=== PATIENT | female | born 1990 | race Caucasian/White ===

== ENCOUNTER 2017-04-23 18:11 | Emergency (ER) | payer MEDICAID ==
--- NOTE | 2017-04-23 19:03 | EDM.PDOC ---
ED HPI GENERAL MEDICAL PROBLEM - General Chief Complaint: General Stated Complaint: COLD Time Seen by Provider: 04/23/17 18:45 Source of Information: Reports: Patient History Limitations: Reports: No Limitations - History of Present Illness INITIAL COMMENTS - FREE TEXT/NARRATIVE: History of present illness: [26-year-old female comes in complaining of cough, congestion, and general signs and symptoms of a head cold. Patient states she is concerned because she utilizes an inhaler that she no longer has refills for and the one that she has available to her is empty. She also indicates that when she gets congested like this that the mucus is gets very thick and tachycardia.] Review of systems: As per history of present illness and below otherwise all systems reviewed and negative. Past medical history: As per history of present illness and as reviewed below otherwise noncontributory. Surgical history: As per history of present illness and as reviewed below otherwise noncontributory. Social history: No reported history of drug or alcohol abuse. Family history: As per history of present illness and as reviewed below otherwise noncontributory. Physical exam: HEENT: Atraumatic, normocephalic, pupils reactive, negative for conjunctival pallor or scleral icterus, mucous membranes moist, throat clear, neck supple, nontender, trachea midline. Lungs: Clear to auscultation, breath sounds equal bilaterally, chest nontender. Heart: S1S2, regular, negative for clicks, rubs, or JVD. Abdomen: Soft, nondistended, nontender. Negative for masses or hepatosplenomegaly. Negative for costovertebral tenderness. Pelvis: Stable nontender. Genitourinary: Deferred. Rectal: Deferred. Extremities: Atraumatic, negative for cords or calf pain. Neurovascular unremarkable. Neuro: Awake, alert, oriented. Cranial nerves II through XII unremarkable. Cerebellum unremarkable. Motor and sensory unremarkable throughout. Exam nonfocal. Global assessment is benign save the subjective complaint as noted in history of present illness patient does have a little bit of a loose cough but no sputum visualized at this time Diagnostics: [] Therapeutics: [] Impression: [#1 viral syndrome #2 history of asthma] Plan: [Provide a new inhaler with a spacer and since patient is a smoker will give antibiotics.] Definitive disposition and diagnosis as appropriate pending reevaluation and review of above. throat Pain Score (Numeric/FACES): 4 - Related Data Allergies Allergy/AdvReac Type Severity Reaction Status Date / Time No Known Allergies Allergy Verified 04/23/17 18:30 Home Meds: Home Meds Albuterol Sulfate [Proair Hfa] 2 puff IH Q6HR #1 hfa.aer.ad 04/23/17 [Rx] Amoxicillin/Potassium Clav [Augmentin 875-125 Tablet] 1 each PO BID #20 tablet 04/23/17 [Rx] Inhaler, Assist Devices [Space Chamber Plus] 1 each MC ASDIRECTED #1 spacer 04/01 [Rx] methylPREDNISolone [Medrol] 4 mg PO DAILY #21 tab.ds.pk 04/23/17 [Rx] Past Medical History - Past Health History Medical/Surgical History: Denies Medical/Surgical History Respiratory History: Reports: Asthma DATA MANAGEMENT History: Reports: Social & Family History - Family History Family Medical History: Noncontributory - Tobacco Use Smoking Status *Q: Current Every Day Smoker Years of Tobacco use: 9 Packs/Tins Daily: 1 - Recreational Drug Use Recreational Drug Use: No ED ROS GENERAL - Review of Systems Review Of Systems: See Below (See history of present illness) ED EXAM, GENERAL - Physical Exam Exam: See Below (History of present illness) Course - Vital Signs Last Recorded V/S: Last Vital Signs Temp 36.1 C 04/23/17 18:15 Pulse 117 H 04/23/17 18:15 Resp 18 04/23/17 18:15 BP 137/87 04/23/17 18:15 Pulse Ox 95 04/23/17 18:15 Departure - Departure Time of Disposition: 19:02 Disposition: Home, Self-Care 01 Condition: Good Clinical Impression: Viral syndrome, Asthma - Discharge Information Referrals: PCP,None [Primary Care Provider] - Additional Instructions: The following information is given to patients seen in the emergency department who are being discharged to home. This information is to outline your options for follow-up care. We provide all patients seen in our emergency department with a follow-up referral. The need for follow-up, as well as the timing and circumstances, are variable depending upon the specifics of your emergency department visit. If you don't have a primary care physician on staff, we will provide you with a referral. We always advise you to contact your personal physician following an emergency department visit to inform them of the circumstance of the visit and for follow-up with them and/or the need for any referrals to a consulting specialist. The emergency department will also refer you to a specialist when appropriate. This referral assures that you have the opportunity for follow-up care with a specialist. All of these measure are taken in an effort to provide you with optimal care, which includes your follow-up. Under all circumstances we always encourage you to contact your private physician who remains a resource for coordinating your care. When calling for follow-up care, please make the office aware that this follow-up is from your recent emergency room visit. If for any reason you are refused follow-up, please contact the [facility] Emergency Department at and asked to speak to the emergency department charge nurse. Take medication as directed Follow-up with PCP 1-2 days Return to ED as needed as discussed [facility] [address] [place] [id number]
[2017-04-23 20:39] VITALS: BP 109/75
== END 2017-04-23 19:15 | disposition home or self-care (01) ==
LOC: MW.ED 18:11
DX: B34.9 Viral infection, unspecified (principal); J45.909 Unspecified asthma, uncomplicated; F17.210 Nicotine dependence, cigarettes, uncomplicated; Z79.899 Other long term (current) drug therapy
CPT/HCPCS: 99282

== ENCOUNTER 2017-04-26 21:38 | Emergency (ER) | payer MEDICAID ==
--- NOTE | 2017-04-26 21:46 | EDM.PDOC ---
ED HPI GENERAL MEDICAL PROBLEM - General Chief Complaint: ENT Problem Stated Complaint: PT HAS SWOLLEN LIP Time Seen by Provider: 04/26/17 21:40 - History of Present Illness INITIAL COMMENTS - FREE TEXT/NARRATIVE: HISTORY AND PHYSICAL: History of present illness: Patient's 26-year-old female who presents with a concern of a pimple on her chin that she squeezed and now has developed swelling erythema and pain she denies fever chills nausea vomiting or other complaints Review of systems: As per history of present illness and below otherwise all systems reviewed and negative. Past medical history: As per history of present illness and as reviewed below otherwise noncontributory. Surgical history: As per history of present illness and as reviewed below otherwise noncontributory. Social history: No reported history of drug or alcohol abuse. Family history: As per history of present illness and as reviewed below otherwise noncontributory. Physical exam: HEENT: Patient has an excoriated area where she had picked at her face this is just below her lower lip she now is surrounding erythema slight induration no fluctuance no discharge moderate swelling normocephalic, pupils reactive, negative for conjunctival pallor or scleral icterus, mucous membranes moist, throat clear, neck supple, nontender, trachea midline. Lungs: Clear to auscultation, breath sounds equal bilaterally, chest nontender. Heart: S1S2, regular, negative for clicks, rubs, or JVD. Abdomen: Soft, nondistended, nontender. Negative for masses or hepatosplenomegaly. Negative for costovertebral tenderness. Pelvis: Stable nontender. Genitourinary: Deferred. Rectal: Deferred. Extremities: Atraumatic, negative for cords or calf pain. Neurovascular unremarkable. Neuro: Awake, alert, oriented. Cranial nerves II through XII unremarkable. Cerebellum unremarkable. Motor and sensory unremarkable throughout. Exam nonfocal. Diagnostics: None Therapeutics: None Impression: #1 cellulitis Definitive disposition and diagnosis as appropriate pending reevaluation and review of above. - Related Data Allergies Allergy/AdvReac Type Severity Reaction Status Date / Time No Known Allergies Allergy Verified 04/26/17 21:41 Home Meds: Home Meds . 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 ED EXAM, GENERAL - Physical Exam Exam: See Below (dictation) Departure - Departure Time of Disposition: 21:44 Disposition: Home, Self-Care 01 Condition: Good Clinical Impression: Cellulitis - Discharge Information Additional Instructions: The following information is given to patients seen in the emergency department who are being discharged to home. This information is to outline your options for follow-up care. We provide all patients seen in our emergency department with a follow-up referral. The need for follow-up, as well as the timing and circumstances, are variable depending upon the specifics of your emergency department visit. If you don't have a primary care physician on staff, we will provide you with a referral. We always advise you to contact your personal physician following an emergency department visit to inform them of the circumstance of the visit and for follow-up with them and/or the need for any referrals to a consulting specialist. The emergency department will also refer you to a specialist when appropriate. This referral assures that you have the opportunity for followup care with a specialist. All of these measure are taken in an effort to provide you with optimal care, which includes your followup. Under all circumstances we always encourage you to contact your private physician who remains a resource for coordinating your care. When calling for followup care, please make the office aware that this follow-up is from your recent emergency room visit. If for any reason you are refused follow-up, please contact the [facility] emergency department at and asked to speak to the emergency department charge nurse. YON[facility] [address] [place] [id number] Bactrim clindamycin as prescribed Motrin or Tylenol as directed follow primary medical doctor in the clinic about 1-2 days for recheck return as needed as discussed
[2017-04-26 22:02] VITALS: BP 122/85
--- NOTE | 2017-05-01 17:37 | PCM.SN ---
- Free Text/Narrative Note: Please note that the patient has presented to the emergency department today stating that she did not fill her clindamycin and Bactrim via [facility] after being seen here in the emergency department on April 26 for a mild facial cellulitis. Patient presents today saying that she would like those prescriptions reissued and as it is more than 24 hours I will handwrite a prescription to honor Dr. Barragan's treatment plan of clindamycin 300 mg 4 times a day for 10 days and Bactrim DS 1 tablet by mouth twice a day for 10 days. The patient has told nursing that she will not take the clindamycin but she has been advised that the treatment plan included both antibiotics.
== END 2017-04-26 22:02 | disposition home or self-care (01) ==
LOC: MW.ED 21:38
DX: K13.0 Diseases of lips (principal); F17.210 Nicotine dependence, cigarettes, uncomplicated
CPT/HCPCS: 99282

== ENCOUNTER 2017-10-15 08:33 | Emergency (ER) | payer MEDICAID ==
[2017-10-15] MEDS ORDERED: Albuterol/Ipratropium 3.0-0.5 MG/3 ML Neb Soln NEB ONE (08:59)
[2017-10-15] MEDS ORDERED: predniSONE 20 MG Tab PO ONE (08:59)
--- NOTE | 2017-10-15 09:04 | EDM.PDOC ---
ED HPI GENERAL MEDICAL PROBLEM - General Chief Complaint: Respiratory Problem Stated Complaint: COUGH,SORE THROAT Time Seen by Provider: 10/15/17 08:54 - History of Present Illness INITIAL COMMENTS - FREE TEXT/NARRATIVE: HISTORY AND PHYSICAL: History of present illness: The patient is a 26-year-old female who has a history of asthma since she was a child who does not have an inhaler and so she has been out of it last couple of months since moving here and presents with a four-day history of cough sore throat nasal congestion and 2 days of wheezing. The patient is a tobacco smoker but says that since the wheezing started she has reduced her tobacco use. The patient denies chest pain doesn't feel short of breath she does feels like it's tight to move air due to the wheezing. She has not had a fever vomiting or diarrhea and has no urinary complaints. The patient has a nebulizer machine at home but has no medication for it. She has not been on steroids for many years. She doesn't have any triggers for asthma and has not had a flareup. She has no local clinic provider and she did not get her influenza vaccine this year Review of systems: As per history of present illness and below otherwise all systems reviewed and negative. Past medical history: As per history of present illness and as reviewed below otherwise noncontributory. Surgical history: As per history of present illness and as reviewed below otherwise noncontributory. Social history: No reported history of drug or alcohol abuse. Family history: As per history of present illness and as reviewed below otherwise noncontributory. Physical exam: General: Well-developed overweight female who is nontoxic and vital signs have been reviewed by me. She is not breathless on my evaluation but she has slight nasal quality to voice HEENT: Atraumatic, normocephalic, pupils reactive, negative for conjunctival pallor or scleral icterus, mucous membranes moist, throat clear, neck supple, nontender, trachea midline. No cervical adenopathy or nuchal rigidity Lungs: Clear to auscultation with fine expiratory wheeze in the left base and no work of breathing or stridor, breath sounds equal bilaterally, chest nontender. Heart: S1S2, regular rate and rhythm no overt murmurs on my evaluation Abdomen: Soft, nondistended, nontender. NABS Negative for costovertebral tenderness. Pelvis: Stable nontender. Genitourinary: Deferred. Rectal: Deferred. Extremities: Atraumatic, negative for cords or calf pain. Neurovascular unremarkable. Neuro: Awake, alert, oriented. Cranial nerves II through XII unremarkable. Cerebellum unremarkable. Motor and sensory unremarkable throughout. Exam nonfocal. Diagnostics: Rapid strep influenza Therapeutics: Duo Neb prednisone spacer teaching Impression: Acute asthma exacerbation/URI Definitive disposition and diagnosis as appropriate pending reevaluation and review of above. Throat Pain Score (Numeric/FACES): 4 - Related Data Allergies Allergy/AdvReac Type Severity Reaction Status Date / Time No Known Allergies Allergy Verified 10/15/17 08:44 Home Meds: Home Meds . 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: Musculoskeletal History: Reports: None Neurological History: Reports: None Psychiatric History: Reports: Anxiety, Depression Endocrine/Metabolic History: Reports: None Hematologic History: Reports: None Immunologic History: Reports: None Oncologic (Cancer) History: Reports: None Dermatologic History: Reports: None - Infectious Disease History Infectious Disease History: Reports: MRSA - Past Surgical History Head Surgeries/Procedures: Reports: None HEENT Surgical History: Reports: None Cardiovascular Surgical History: Reports: None GI Surgical History: Reports: None Female Surgical History: Reports: None Social & Family History - Family History Family Medical History: Noncontributory - Tobacco Use Smoking Status *Q: Current Every Day Smoker Years of Tobacco use: 9 Packs/Tins Daily: 0.2 - Caffeine Use Caffeine Use: Reports: None - Recreational Drug Use Recreational Drug Use: No ED ROS GENERAL - Review of Systems Review Of Systems: ROS reveals no pertinent complaints other than HPI. ED EXAM, GENERAL - Physical Exam Exam: See Below (See dictation) Course - Vital Signs Last Recorded V/S: Last Vital Signs Temp 36.5 C 10/15/17 08:41 Pulse 111 H 10/15/17 08:41 Resp 20 10/15/17 08:41 BP 120/63 10/15/17 08:41 Pulse Ox 95 10/15/17 08:41 - Orders/Labs/Meds Orders: Active Orders 24 hr Category Date Time Status Communication Order [RC] STAT Care 10/15/17 09:00 Active RT Aerosol Therapy [RC] ASDIRECTED Care 10/15/17 08:59 Active CULTURE STREP A CONFIRMATION [RM] Stat Lab 10/15/17 09:07 Results STREP SCRN A RAPID W CULT CONF [RM] Stat Lab 10/15/17 09:07 Results Meds: Medications Discontinued Medications Generic Name Dose Route Start Last Admin Trade Name Sierra PRN Reason Stop Dose Admin Albuterol/Ipratropium 3 ml 10/15/17 08:59 10/15/17 09:19 Duoneb 3.0-0.5 Mg/3 Ml NEB 10/15/17 09:00 3 ml ONETIME ONE Administration Prednisone 40 mg 10/15/17 08:59 10/15/17 09:17 Prednisone PO 10/15/17 09:00 40 mg ONETIME ONE Administration Departure - Departure Time of Disposition: 09:43 Disposition: Home, Self-Care 01 Condition: Good Clinical Impression: URI, acute Exacerbation of asthma Qualifiers: Asthma severity: mild Asthma persistence: unspecified Qualified Code(s): J45.901 - Unspecified asthma with (acute) exacerbation - Discharge Information Referrals: PCP,None [Primary Care Provider] - Forms: ED Department Discharge Additional Instructions: The following information is given to patients seen in the emergency department who are being discharged to home. This information is to outline your options for follow-up care. We provide all patients seen in our emergency department with a follow-up referral. The need for follow-up, as well as the timing and circumstances, are variable depending upon the specifics of your emergency department visit. If you don't have a primary care physician on staff, we will provide you with a referral. We always advise you to contact your personal physician following an emergency department visit to inform them of the circumstance of the visit and for follow-up with them and/or the need for any referrals to a consulting specialist. The emergency department will also refer you to a specialist when appropriate. This referral assures that you have the opportunity for followup care with a specialist. All of these measure are taken in an effort to provide you with optimal care, which includes your followup. Under all circumstances we always encourage you to contact your private physician who remains a resource for coordinating your care. When calling for followup care, please make the office aware that this follow-up is from your recent emergency room visit. If for any reason you are refused follow-up, please contact the [facility] emergency department at and ask to speak to the emergency department charge nurse. [facility] Primary care- Internal Medicine and Family [address] [address] Push hydration and reduce or stop tobacco use. Please use your nebulizer or your inhaler with spacer every 6 hours for the next 2-3 days [id number] and then as needed. Please take prednisone/Medrol [place] until it is finished. Rest as much as possible. Return to ER as needed and as discussed and please call our clinic for a follow-up appointment and scheduled care for your asthma as we discussed. - My Orders Last 24 Hours: My Active Orders 10/15/17 08:59 RT Aerosol Therapy [RC] ASDIRECTED 10/15/17 09:00 Communication Order [RC] STAT 10/15/17 09:07 CULTURE STREP A CONFIRMATION [RM] Stat STREP SCRN A RAPID W CULT CONF [RM] Stat - Assessment/Plan Last 24 Hours: My Active Orders 10/15/17 08:59 RT Aerosol Therapy [RC] ASDIRECTED 10/15/17 09:00 Communication Order [RC] STAT 10/15/17 09:07 CULTURE STREP A CONFIRMATION [RM] Stat STREP SCRN A RAPID W CULT CONF [] Stat
[2017-10-15 09:59] VITALS: BP 116/57
== END 2017-10-15 09:55 | disposition home or self-care (01) ==
LOC: MW.ED 08:33
DX: J45.901 Unspecified asthma with (acute) exacerbation (principal); J06.9 Acute upper respiratory infection, unspecified; F17.210 Nicotine dependence, cigarettes, uncomplicated
CPT/HCPCS: 87081; 87804; 87880; 94640; 99283; A9270

== ENCOUNTER 2017-11-19 00:48 | Emergency (ER) | payer SELFPAY ==
--- NOTE | 2017-11-19 01:16 | EDM.PDOC ---
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 According to the patient she has had nausea and intermittent vomiting throughout this but she is able to tolerate fluids in small bites of food. She has not started her period and she is waiting for her insurance information. The patient denies any flank pain or upper abdominal pain and says that the cramping is in the pelvic area and does not localize right or left. She said no dysuria or frequency and no vaginal discharge. Patient said she had sexual intercourse approximately 2 hours ago and fell asleep and woke up "with a puddle of blood". She said that she has cleaned up and since that time she does not believe that she is passing any blood and she' s currently not using any pads. The patient otherwise has no systemic complaints. The patient has no history of any tubal issues and no oncologic surgeries in the past. He she says that she recalls that she program with prior pregnancies but does not know her blood type. By her last menstrual period being mid August she is approximately 10-11 weeks but that isn't unsure menses date. Review of systems: As per history of present illness and below otherwise all systems reviewed and negative. Past medical history: As per history of present illness and as reviewed below otherwise noncontributory. Surgical history: As per history of present illness and as reviewed below otherwise noncontributory. Social history: No reported history of drug or alcohol abuse. Family history: As per history of present illness and as reviewed below otherwise noncontributory. Physical exam: General: Well-developed overweight female who is nontoxic and vital signs were noted by me HEENT: Atraumatic, normocephalic, negative for conjunctival pallor or scleral icterus, mucous membranes moist, throat clear, neck supple, nontender, trachea midline. Lungs: Clear to auscultation, breath sounds equal bilaterally, chest nontender. Heart: S1S2, regular rate and rhythm no overt murmurs Abdomen: Soft, nondistended, nontender. Negative for masses or hepatosplenomegaly. Negative for costovertebral tenderness. Pelvis: Stable nontender. Genitourinary: Deferred. Rectal: Deferred. Extremities: Atraumatic, negative for cords or calf pain. Neurovascular unremarkable. Neuro: Awake, alert, oriented. Cranial nerves II through XII unremarkable. Cerebellum unremarkable. Motor and sensory unremarkable throughout. Exam nonfocal. Diagnostics: CBC serum quantitative hCG UA, urine culture if indicated, ABO Rh, pelvic ultrasound Therapeutics: RhoGAM The patient told nursing that when she went to the bathroom to provide a urine sample there was no active bleeding in her underwear or in the toilet and when she wiped there was a scant amount of blood. Per blood bank the patient's blood type is B- so Rho Narendra will be ordered. Ultrasound and lab tests were discussed with the patient and currently the serum quantitative hCG is still running but with a live IUP at 9 weeks 2 days we will not hold the patient for that number. I will follow-up that result the patient is still in the department. I stressed importance of starting care and strict pelvic rest until she gets care. Impression: Reddened , Rh- Definitive disposition and diagnosis as appropriate pending reevaluation and review of above. Lower Abdomen Pain Score (Numeric/FACES): 4 - Related Data Allergies Allergy/AdvReac Type Severity Reaction Status Date / Time No Known Allergies Allergy Verified 11/19/17 01:02 Home Meds: Home Meds . 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: Musculoskeletal History: Reports: None Neurological History: Reports: None Psychiatric History: Reports: Anxiety, Depression Endocrine/Metabolic History: Reports: None Hematologic History: Reports: None Immunologic History: Reports: None Oncologic (Cancer) History: Reports: None Dermatologic History: Reports: None - Infectious Disease History Infectious Disease History: Reports: MRSA - Past Surgical History Head Surgeries/Procedures: Reports: None HEENT Surgical History: Reports: None Cardiovascular Surgical History: Reports: None GI Surgical History: Reports: None Female Surgical History: Reports: None Social & Family History - Family History Family Medical History: Noncontributory - Tobacco Use Smoking Status *Q: Current Every Day Smoker Years of Tobacco use: 10 Packs/Tins Daily: 0.5 - Caffeine Use Caffeine Use: Reports: None - Recreational Drug Use Recreational Drug Use: No ED ROS GENERAL - Review of Systems Review Of Systems: ROS reveals no pertinent complaints other than HPI. ED EXAM, GENERAL - Physical Exam Exam: See Below (See dictation) Course - Vital Signs Last Recorded V/S: Last Vital Signs Temp 36.3 C 11/19/17 00:59 Pulse 87 11/19/17 00:59 Resp 20 11/19/17 00:59 BP 133/81 11/19/17 00:59 Pulse Ox 96 11/19/17 00:59 - Orders/Labs/Meds Orders: Active Orders 24 hr Category Date Time Status OB 1st Tri Sgl 1st Gest [US] Stat Exams 11/19/17 01:12 Taken ABO/RH TYPE [BBK] Stat Lab 11/19/17 01:24 Received HCG QUANTITATIVE,SERUM [CHEM] Stat Lab 11/19/17 01:24 Received RHIG WORKUP, [BBK] Stat Lab 11/19/17 02:30 Ordered TYPE AND SCREEN [BBK] Stat Lab 11/19/17 02:30 Ordered UA W/MICROSCOPIC [URIN] Stat Lab 11/19/17 01:15 Ordered Rho(D) Immune Globulin [Rhophylac] Med 11/19/17 02:30 Once 300 mcg IM ONETIME ONE Labs: Laboratory Tests 11/19/17 11/19/17 Range/Units 01:15 01:24 WBC 14.11 H (4.0-11.0) K/uL RBC 4.86 (4.30-5.90) M/uL Hgb 13.8 (12.0-16.0) g/dL Hct 40.9 (36.0-46.0) % MCV 84.2 (80.0-98.0) fL MCH 28.4 (27.0-32.0) pg MCHC 33.7 (31.0-37.0) g/dL RDW Std Deviation 42.6 (28.0-62.0) fl RDW Coeff of Preet 14 (11.0-15.0) % Plt Count 314 (150-400) K/uL MPV 10.70 (7.40-12.00) fL Neut % (Auto) 68.7 (48.0-80.0) % Lymph % (Auto) 24.5 (16.0-40.0) % Crosby % (Auto) 5.8 (0.0-15.0) % Eos % (Auto) 0.9 (0.0-7.0) % Baso % (Auto) 0.1 (0.0-1.5) % Neut # (Auto) 9.7 H (1.4-5.7) K/uL Lymph # (Auto) 3.5 H (0.6-2.4) K/uL Crosby # (Auto) 0.8 (0.0-0.8) K/uL Eos # (Auto) 0.1 (0.0-0.7) K/uL Baso # (Auto) 0.0 (0.0-0.1) K/uL Nucleated RBC % 0.0 /100WBC Nucleated RBCs # 0 K/uL Urine Color YELLOW Urine Appearance CLEAR Urine pH 6.0 (5.0-8.0) Ur Specific Dukedom >= 1.030 (1.001-1.035) Urine Protein NEGATIVE (NEGATIVE) mg/dL Urine Glucose (UA) NEGATIVE (NEGATIVE) mg/dL Urine Ketones NEGATIVE (NEGATIVE) mg/dL Urine Occult Blood LARGE H (NEGATIVE) Urine Nitrite NEGATIVE (NEGATIVE) Urine Bilirubin NEGATIVE (NEGATIVE) Urine Urobilinogen 0.2 (<2.0) EU/dL Ur Leukocyte Esterase NEGATIVE (NEGATIVE) Urine RBC 2-3 (0-2/HPF) Urine WBC 0-1 (0-5/HPF) Ur Epithelial Cells FEW (NONE-FEW) Urine Bacteria FEW (NEGATIVE) Urine Mucus LIGHT (NONE-MOD) Departure - Departure Time of Disposition: 02:33 Disposition: Home, Self-Care 01 Condition: Good Clinical Impression: Threatened Rh negative status during Qualifiers: Trimester: first trimester Qualified Code(s): O09.891 - Supervision of other high risk pregnancies, first trimester; Z67.91 - Unspecified blood type, Rh negative - Discharge Information Referrals: PCP,None [Primary Care Provider] - Forms: ED Department Discharge Additional Instructions: The following information is given to patients seen in the emergency department who are being discharged to home. This information is to outline your options for follow-up care. We provide all patients seen in our emergency department with a follow-up referral. The need for follow-up, as well as the timing and circumstances, are variable depending upon the specifics of your emergency department visit. If you don't have a primary care physician on staff, we will provide you with a referral. We always advise you to contact your personal physician following an emergency department visit to inform them of the circumstance of the visit and for follow-up with them and/or the need for any referrals to a consulting specialist. The emergency department will also refer you to a specialist when appropriate. This referral assures that you have the opportunity for followup care with a specialist. All of these measure are taken in an effort to provide you with optimal care, which includes your followup. Under all circumstances we always encourage you to contact your private physician who remains a resource for coordinating your care. When calling for followup care, please make the office aware that this follow-up is from your recent emergency room visit. If for any reason you are refused follow-up, please contact the [facility] emergency department at and ask to speak to the emergency department charge nurse. [facility] Primary care-[facility] [place] [id number] Strict pelvic rest and nothing in the vagina until you are followed up in the clinic for care. Push hydration and rest. Returned ER as needed and as discussed. - My Orders Last 24 Hours: My Active Orders 11/19/17 01:12 OB 1st Tri Sgl 1st Gest [US] Stat 11/19/17 01:15 UA W/MICROSCOPIC [URIN] Stat 11/19/17 01:24 ABO/RH TYPE [BBK] Stat HCG QUANTITATIVE,SERUM [CHEM] Stat 11/19/17 02:30 RHIG WORKUP, [BBK] Stat TYPE AND SCREEN [BBK] Stat Rho(D) Immune Globulin [Rhophylac] 300 mcg IM ONETIME ONE - Assessment/Plan Last 24 Hours: My Active Orders 11/19/17 01:12 OB 1st Tri Sgl 1st Gest [US] Stat 11/19/17 01:15 UA W/MICROSCOPIC [URIN] Stat 11/19/17 01:24 ABO/RH TYPE [BBK] Stat HCG QUANTITATIVE,SERUM [CHEM] Stat 11/19/17 02:30 RHIG WORKUP, [BBK] Stat TYPE AND SCREEN [BBK] Stat Rho(D) Immune Globulin [Rhophylac] 300 mcg IM ONETIME ONE
[2017-11-19] MEDS ORDERED: Rho(D) Immune Globulin 300 MCG/2 ML Syringe IM ONE (02:30)
[2017-11-19 04:19] VITALS: BP 111/67
--- NOTE | 2017-11-19 14:36 | US ---
EXAM DATE: 11/19/17 PATIENT'S AGE: 27 Patient: TERRA CHACON Facility: [place], [place] Site . Site : 1990 Study: US OB Pelvis -11/19/2017 2:06:28 AM Ordering Physician: Deshawn Villatoro Final Report: INDICATION: Spotting and TECHNIQUE: Ultrasound OB pelvis transvaginal. Real-time bustillos-scale imaging of the pelvis was performed. COMPARISON: None FINDINGS: Sonographic imaging demonstrates a single living intrauterine gestation. The embryo demonstrates a regular cardiac rate measuring 172 beats per minute. The embryo`s crown rump length measurement of 2.4 cm corresponds to a gestational age of 9 weeks 2 days with a sonographic due date of June 22, 2018. There is a normal appearing yolk sac. There are no gross abnormalities noted within the embryo at this early state of development. The placenta has not yet developed. The gestational sac has a normal appearance and there is no evidence of a perigestational hemorrhage. The amount of fluid within the sac appears appropriate for gestational age. The cervix is closed. The myometrium appears normal. The ovaries are of normal size. There are no suspicious fluid collections noted in the cul-de-sac. IMPRESSION: Single viable intrauterine . No abnormalities seen. Gestational age is 9 weeks 2 days with sonographic due date of June 22, 2018. Dictated by Jemima Colón MD @ Nov 19 2017 2:24AM (Electronic Signature) Report Signed by Proxy. KELSEY
== END 2017-11-19 04:10 | disposition home or self-care (01) ==
LOC: MW.ED 00:48
DX: O20.0 Threatened abortion (principal); O09.891 Supervision of other high risk pregnancies, first trimester; F17.210 Nicotine dependence, cigarettes, uncomplicated; Z67.91 Unspecified blood type, Rh negative; Z3A.10 10 weeks gestation of pregnancy
CPT/HCPCS: 36415; 76801; 81001; 84702; 85025; 86850; 86900; 86901; 96372; 99284; J2790; J2791; 99283

== ENCOUNTER 2018-09-27 18:31 | Emergency (ER) | payer SELFPAY ==
[2018-09-27 18:56] VITALS: BP 133/86
--- NOTE | 2018-09-27 19:17 | EDM.PDOC ---
ED HPI GENERAL MEDICAL PROBLEM - General Chief Complaint: Respiratory Problem Stated Complaint: CONGESTION, THROAT, ASTHMA Time Seen by Provider: 09/27/18 18:42 Source of Information: Reports: Patient History Limitations: Reports: No Limitations - History of Present Illness INITIAL COMMENTS - FREE TEXT/NARRATIVE: Presents reporting a cough that has been ongoing for a couple of weeks that is of affecting her "asthma". No fever ear pain sore throat shortness of breath or chest pain or wheezing. - Related Data Allergies Allergy/AdvReac Type Severity Reaction Status Date / Time No Known Allergies Allergy Verified 09/27/18 18:53 Home Meds: Home Meds Beclomethasone Dipropionate [Qvar] 2 puff IH BID 7 Days #1 inhaler 09/27/18 [Rx] guaiFENesin/Codeine Phosphate [Cheratussin AC Syrup] 10 ml PO Q6HR PRN #236 ml 09/27/18 [Rx] predniSONE [Prednisone] 2 tab PO DAILY #10 tablet 09/27/18 [Rx] Past Medical History - Past Health History Medical/Surgical History: Denies Medical/Surgical History HEENT History: Reports: None Cardiovascular History: Reports: None Respiratory History: Reports: Asthma Gastrointestinal History: Reports: None Genitourinary History: Reports: None 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: Musculoskeletal History: Reports: None Neurological History: Reports: None Psychiatric History: Reports: Anxiety, Depression Endocrine/Metabolic History: Reports: Obesity/BMI 30+ Hematologic History: Reports: None Immunologic History: Reports: None Oncologic (Cancer) History: Reports: None Dermatologic History: Reports: None - Infectious Disease History Infectious Disease History: Reports: None - Past Surgical History Head Surgeries/Procedures: Reports: None HEENT Surgical History: Reports: None Cardiovascular Surgical History: Reports: None GI Surgical History: Reports: None Female Surgical History: Reports: None Endocrine Surgical History: Reports: None Neurological Surgical History: Reports: None Musculoskeletal Surgical History: Reports: None Oncologic Surgical History: Reports: None Dermatological Surgical History: Reports: None Social & Family History - Family History Family Medical History: Noncontributory Endocrine/Metabolic: Reports: Diabetes, type II - Tobacco Use Smoking Status *Q: Never Smoker - Caffeine Use Caffeine Use: Reports: None - Recreational Drug Use Recreational Drug Use: No ED ROS GENERAL - Review of Systems Review Of Systems: ROS reveals no pertinent complaints other than HPI. ED EXAM, GENERAL - Physical Exam Exam: See Below Exam Limited By: No Limitations General Appearance: Alert, No Apparent Distress Ears: Normal External Exam, Normal TMs Nose: Normal Inspection Throat/Mouth: Normal Inspection, Normal Oropharynx Head: Atraumatic, Normocephalic Neck: Normal Inspection Respiratory/Chest: No Respiratory Distress, Lungs Clear, Normal Breath Sounds, Other (Frequent dry hacking cough in exam room) Cardiovascular: Normal Peripheral Pulses, Regular Rate, Rhythm, No Murmur Neurological: Alert, Oriented Psychiatric: Normal Affect, Normal Mood Skin Exam: Warm, Dry, Intact, Normal Color, No Rash Lymphatic: No Adenopathy Course - Vital Signs Last Recorded V/S: Last Vital Signs Temp 36.4 C 09/27/18 18:54 Pulse 122 H 09/27/18 18:54 Resp 16 09/27/18 18:54 BP 133/86 09/27/18 18:54 Pulse Ox 95 09/27/18 18:54 Departure - Departure Time of Disposition: 19:19 Disposition: Home, Self-Care 01 Condition: Good Clinical Impression: Bronchitis - Discharge Information Referrals: PCP,None [Primary Care Provider] - Armin Braun [Ordering Only Provider] - [facility] [Outside] Additional Instructions: 1. Prednisone 20 mg 2 tabs daily for the next 5 days 2. QVar inhaler 2 puffs twice daily for the next 7 days 3. Cough syrup as needed every 6 hours. No [address] or operating machinery 4. Take plenty of clear fluids 5. Follow up in primary care
== END 2018-09-27 19:36 | disposition home or self-care (01) ==
LOC: MW.ED 18:31
DX: J40 Bronchitis, not specified as acute or chronic (principal); E66.9 Obesity, unspecified
CPT/HCPCS: 99283

== ENCOUNTER 2019-02-28 17:03 | Emergency (ER) | payer MEDICAID ==
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
--- NOTE | 2019-02-28 17:59 | EDM.PDOC ---
ED HPI GENERAL MEDICAL PROBLEM - General Chief Complaint: Medication Administration Stated Complaint: MED. REFILL Time Seen by Provider: 02/28/19 17:26 Right Hand/Wrist, Left Ankle Pain Score (Numeric/FACES): 8 - Related Data Allergies Allergy/AdvReac Type Severity Reaction Status Date / Time No Known Allergies Allergy Verified 02/28/19 17:18 Home Meds: Home Meds Acetaminophen [Tylenol] 2 cap PO TID 02/28/19 [History] Diclofenac Sodium [Voltaren] 75 mg PO BIDMEALS PRN #20 tab.ec 02/28/19 [Rx] Gabapentin [Neurontin] 600 mg PO Q4H 02/28/19 [History] Gabapentin [Neurontin] 600 mg PO Q6H #40 tablet 02/28/19 [Rx] Ibuprofen 600 mg PO TID 02/28/19 [History] Melatonin 10 mg PO BEDTIME 02/28/19 [History] oxyCODONE 15 mg PO Q6H PRN 02/28/19 [History] Past Medical History - Past Health History Medical/Surgical History: Denies Medical/Surgical History HEENT History: Reports: None Cardiovascular History: Reports: None Respiratory History: Reports: Asthma Gastrointestinal History: Reports: None Genitourinary History: Reports: None 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: Musculoskeletal History: Reports: None Neurological History: Reports: None Psychiatric History: Reports: Anxiety, Depression Endocrine/Metabolic History: Reports: Obesity/BMI 30+ Hematologic History: Reports: None Immunologic History: Reports: None Oncologic (Cancer) History: Reports: None Dermatologic History: Reports: None - Infectious Disease History Infectious Disease History: Reports: None - Past Surgical History Head Surgeries/Procedures: Reports: None HEENT Surgical History: Reports: None Cardiovascular Surgical History: Reports: None GI Surgical History: Reports: None Female Surgical History: Reports: None Endocrine Surgical History: Reports: None Neurological Surgical History: Reports: None Musculoskeletal Surgical History: Reports: Other (See Below) Other Musculoskeletal Surgeries/Procedures:: Left Leg, Right Hand/Wrist Oncologic Surgical History: Reports: None Dermatological Surgical History: Reports: None Social & Family History - Family History Family Medical History: Noncontributory Endocrine/Metabolic: Reports: Diabetes, type II - Tobacco Use Smoking Status *Q: Current Every Day Smoker Years of Tobacco use: 11 Packs/Tins Daily: 1 - Caffeine Use Caffeine Use: Reports: None - Recreational Drug Use Recreational Drug Use: No Course - Vital Signs Last Recorded V/S: Last Vital Signs Temp 35.9 C 02/28/19 17:14 Pulse 125 H 02/28/19 17:14 Resp 18 02/28/19 17:14 BP 109/72 02/28/19 17:14 Pulse Ox 95 02/28/19 17:14 Departure - Discharge Information Prescriptions: Diclofenac Sodium [Voltaren] 75 mg PO BIDMEALS PRN #20 tab.ec PRN Reason: Pain Gabapentin [Neurontin] 600 mg PO Q6H #40 tablet Referrals: PCP,Unknown [Primary Care Provider] -
[2019-02-28 18:26] VITALS: BP 106/62
== END 2019-02-28 18:25 | disposition home or self-care (01) ==
LOC: MW.ED 17:03
DX: G89.18 Other acute postprocedural pain (principal); G62.9 Polyneuropathy, unspecified; J45.909 Unspecified asthma, uncomplicated; M79.641 Pain in right hand; F41.9 Anxiety disorder, unspecified; F32.9 Major depressive disorder, single episode, unspecified; F17.210 Nicotine dependence, cigarettes, uncomplicated; E66.9 Obesity, unspecified; Z79.899 Other long term (current) drug therapy; Z98.890 Other specified postprocedural states; Z68.31 Body mass index [BMI] 31.0-31.9, adult
CPT/HCPCS: 99281; 99283

== ENCOUNTER 2019-05-31 17:35 | Emergency (ER) | payer MEDICAID ==
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
[2019-05-31 19:19] VITALS: BP 126/99; PULSE 85
== END 2019-05-31 19:21 | disposition home or self-care (01) ==
LOC: MW.ED 17:35
DX: M79.644 Pain in right finger(s) (principal); E66.9 Obesity, unspecified; Z68.42 Body mass index [BMI] 45.0-49.9, adult
CPT/HCPCS: 73140-26-F9; 73140-F9; 99283-25

== ENCOUNTER 2019-08-04 16:19 | Emergency (ER) | payer SELFPAY ==
[2019-08-04 16:34] VITALS: BP 116/70; PULSE 130
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
== END 2019-08-04 17:13 | disposition left against medical advice (07) ==
LOC: MW.ED 16:19
DX: M79.642 Pain in left hand (principal); E66.9 Obesity, unspecified; J45.909 Unspecified asthma, uncomplicated; Z68.36 Body mass index [BMI] 36.0-36.9, adult
CPT/HCPCS: 99282

== ENCOUNTER 2019-08-09 15:12 | Emergency (ER) | payer SELFPAY ==
[2019-08-09 15:31] VITALS: BP 116/71; PULSE 116
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
[2019-08-09 16:21] LABS: BLOOD UREA NITROGEN,BUN 9 mg/dL (7.0-18.0); CARBON DIOXIDE,CO2 25.4 mmol/L (21.0-32.0); CHLORIDE,CL 102 mmol/L (98-107); GLUCOSE RANDOM 96 mg/dL (74-106); POTASSIUM,K 4.2 mmol/L (3.5-5.1); SODIUM,NA 137 mmol/L (136-145)
--- NOTE | 2019-08-09 16:32 | CR ---
Indication: Finger pain. Technique: Right 5th finger 3 views Comparison: 05/31/2019. Findings: Bones: Single hardware pin fixating the distal IP joint has retracted approximately 5 mm. Bone alignment is normal. A lytic area in the anterior cortex of the distal phalanx on the lateral image could represent osteomyelitis, this finding is new. Joint spaces: Unremarkable. Soft tissues: General soft tissue swelling has worsened. Dictated by Eduardo Lopez MD @ Aug 09 2019 4:29PM Signed by Dr. Eduardo Lopez @ Aug 09 2019 4:32PM
[2019-08-09] MEDS ORDERED: Sodium Chloride 0.9% 1,000 ML IV ONE (16:43)
[2019-08-09] MEDS ORDERED: Sodium Chloride 0.9% 10 ML Syringe FLUSH PRN (16:43)
[2019-08-09] MEDS ORDERED: Sodium Chloride 0.9% 2.5 ML Syringe FLUSH PRN (16:43)
[2019-08-09] MEDS ORDERED: Piperacillin/Tazobactam 3.375 GM in Sodium Chloride 0.9% 50 ML IV ONE (16:43)
[2019-08-09] MEDS ORDERED: Bupivacaine 0.5% 10 ML SDV INJECT ONE (17:12)
== END 2019-08-09 18:33 | disposition home or self-care (01) ==
LOC: MW.ED 15:12
DX: M86.8X4 Other osteomyelitis, hand (principal); F17.210 Nicotine dependence, cigarettes, uncomplicated; E66.9 Obesity, unspecified; Z68.37 Body mass index [BMI] 37.0-37.9, adult
CPT/HCPCS: 36415; 73140; 80048; 83605; 85025; 87040; 87070; 87077; 87186; 96365; 99283; J2543; J7050

== ENCOUNTER 2019-08-13 01:44 | Emergency (ER) | payer SELFPAY ==
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
[2019-08-13 02:35] VITALS: BP 134/80; PULSE 98
== END 2019-08-13 02:35 ==
LOC: MW.ED 01:44
DX: J06.9 Acute upper respiratory infection, unspecified (principal); J45.909 Unspecified asthma, uncomplicated; E66.9 Obesity, unspecified; F17.210 Nicotine dependence, cigarettes, uncomplicated; Z79.899 Other long term (current) drug therapy; Z68.36 Body mass index [BMI] 36.0-36.9, adult
CPT/HCPCS: 99282; 99283

== ENCOUNTER 2021-03-25 07:46 | Emergency (ER) | payer MEDICAID, OTHER ==
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
[2021-03-25] MEDS ORDERED: Ondansetron 4 MG/2 ML SDV IVPUSH ONE (08:12)
[2021-03-25] MEDS ORDERED: Sodium Chloride 0.9% 10 ML Syringe FLUSH PRN (08:12)
[2021-03-25] MEDS ORDERED: Sodium Chloride 0.9% 2.5 ML Syringe FLUSH PRN (08:12)
[2021-03-25] MEDS ORDERED: Sodium Chloride 0.9% 1,000 ML IV ONE (08:13)
[2021-03-25 09:21] LABS: BLOOD UREA NITROGEN,BUN 11 mg/dL (7.0-18.0); CARBON DIOXIDE,CO2 27.4 mmol/L (21.0-32.0); CHLORIDE,CL 102 mmol/L (98-107); GLUCOSE RANDOM 90 mg/dL (74-106); LIPASE 109 U/L (73-393); POTASSIUM,K 4.6 mmol/L (3.5-5.1); SODIUM,NA 138 mmol/L (136-145)
--- NOTE | 2021-03-25 09:47 | PCM.SN.2 ---
- Free Text/Narrative Note: Anesthesia called to ER to place an ultrasound guided PIV. Patient identified and verbally consented to PIV. Right upper arm positioned with tourniquet and cleaned per standard with chlorhexidine. 1% lidocaine for local and 22g 2inch angiocath placed under ultrasound guidance with one attempt. 10 ml blood drawn for the lab and PIV flushed with saline and secured with dressing. Patient tolerated procedure well. Anesthesia time: 920
[2021-03-25 10:56] VITALS: BP 116/72; PULSE 90
== END 2021-03-25 10:14 | disposition home or self-care (01) ==
LOC: MW.ED 07:46
DX: K92.1 Melena (principal); E66.9 Obesity, unspecified; Z68.43 Body mass index [BMI] 50.0-59.9, adult
CPT/HCPCS: 36415; 80053; 81003; 81025; 83690; 85025; 86850; 86900; 86901; 96374; 99284; J2405; J7030; 36410

== ENCOUNTER 2021-04-23 07:52 | Day surgery (SDC) | payer MEDICAID, OTHER ==
[~2021-04-23 07:52] MED LIST: Lactated Ringers 1,000 ML IV SCH
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
[2021-04-23] MEDS ORDERED: propofoL 50 ML ONE (08:23)
[2021-04-23] MEDS ORDERED: fentaNYL 100 MCG/2 ML SDV ONE (09:01)
--- NOTE | 2021-04-23 09:55 | PCM.OPNOTE ---
- General Post-Op/Procedure Note Date of Surgery/Procedure: 04/23/21 Operative Procedure(s): Colonoscopy and polypectomy. EGD with biposies Findings: Gastritis Colon polyp at 11 cm dictation number [id number] Pre Op Diagnosis: Blood in stool Post-Op Diagnosis: Gastritis. Colon polyp at 11 cm Primary Surgeon: Antonio Sinha Pathology: EGD biopsies Colon polyp Complications: None Condition: Good
--- NOTE | 2021-04-23 10:10 | PCM.POSTAN ---
POST ANESTHESIA ASSESSMENT - MENTAL STATUS Mental Status: Somnolent - VITAL SIGNS Vital Signs: Last Vital Signs Temp 97.7 F 04/23/21 07:59 Pulse 100 04/23/21 07:59 Resp 16 04/23/21 07:59 BP 113/67 04/23/21 07:59 Pulse Ox 97 04/23/21 07:59 - RESPIRATORY Respiratory Status: Respiratory Rate WNL, Airway Patent, O2 Saturation Stable, Supplemental Oxygen - CARDIOVASCULAR CV Status: Pulse Rate WNL, Blood Pressure Stable - GASTROINTESTINAL GI Status: No Symptoms - PAIN Pain Score: 0 - POST OP HYDRATION Hydration Status: Adequate & Stable
--- NOTE | 2021-04-23 10:17 | PCM48HPAN ---
Post Anesthesia Note - EVALUATION WITHIN 48HRS OF ANESTHETIC Vital Signs in Normal Range: Yes Patient Participated in Evaluation: Yes Respiratory Function Stable: Yes Airway Patent: Yes Cardiovascular Function Stable: Yes Hydration Status Stable: Yes Pain Control Satisfactory: Yes Nausea and Vomiting Control Satisfactory: Yes Mental Status Recovered: Yes Vital Signs: Last Vital Signs Temp 97.7 F 04/23/21 07:59 Pulse 74 04/23/21 10:13 Resp 15 04/23/21 10:13 BP 109/70 04/23/21 10:13 Pulse Ox 96 04/23/21 10:13
[2021-04-23 10:23] VITALS: BP 102/6; PULSE 118
--- NOTE | 2021-04-23 17:18 | OR ---
SURGEON: BRUCE SHER MD DATE OF PROCEDURE: 04/23/2021 PREOPERATIVE DIAGNOSIS: Blood in stool. POSTOPERATIVE DIAGNOSIS: Some minimal gastritis with a polyp at 11 cm. PRIMARY SURGEON: Bruce Sher MD ANESTHESIA: With the anesthesiologist. EXTENT OF THE EGD: To the duodenum. EXTENT OF THE COLONOSCOPY: To the cecum and terminal ileum. BOWEL PREP: For the colonoscopy was very good. LIMITATIONS: None. PROCEDURES PERFORMED: 1. Colonoscopy with hot snare polypectomy. 2. Esophagogastroduodenoscopy with cold biopsies. REASON FOR PROCEDURE: The patient is a pleasant 30-year-old female who for the past half-year has been having issues with epigastric pain followed by blood in the stool. These would last a day or so. She reports having issues with stomach ulcers in the past and has been on medication in the past. She also was taking a lot of ibuprofen. She denies any swallowing issue. The patient says since seeing her, she has quit her ibuprofen and really has not had any more issues. PROCEDURE IN DETAIL: Physical examination was performed. The major risks and benefits associated with the procedure were explained to the patient in detail. The patient verbalized understanding and agreement of the same. The patient was then connected to the appropriate monitoring device and IV started. EKG, pulse, pulse oximetry, blood pressure, and capnography were monitored throughout the entire procedure. Continuous oxygen and sedation were provided by the anesthesiologist. The patient was placed in left lateral decubitus position. Sedation was began. After adequate sedation was achieved, the upper endoscope was advanced under direct visualization without difficulty in the upper GI tract. The anatomy and mucosa of the esophagus, GE junction, stomach, pylorus, and duodenum were inspected. Duodenum appeared normal. Scope was brought into the stomach. Stomach had some minimal gastritis, but no ulcerations seen. Did both retrograde and antegrade views of the stomach. Did some biopsies of the pylorus, antrum area to check for H pylori. Also did some random biopsies of the stomach body. The scope was brought back to the GE junction. GE junction was approximately 40 cm from the incisors. She had good Z-line with good squamocolumnar junction. The scope was brought back to the stomach. Biopsy sites had good hemostasis. The stomach was deinsufflated. Scope was brought to the esophagus. Esophagus appeared normal. Scope was completely removed, and this part of the procedure was terminated. Gloves and scopes were changed. Now, a rectal examination was done. No rectal masses or polyps felt. Now, a well-lubricated Olympus colonoscope was inserted in the rectum, advanced under direct visualization to the level of the cecum. The cecum was identified by both visual and anatomic landmarks. Photographs were taken of the cecal cap. The terminal ileum was also intubated. The patient did have some slight thin layer of mucousy stool mainly around the cecum. This was suctioned and irrigated out for a great look at the mucosa. The scope was then slowly withdrawn in somewhat circular fashion looking at the color, texture, and anatomy of the mucosa from the cecum to the anal canal. Again, the patient had some minimal liquid stool. This was suctioned and irrigated out for a really good look at the mucosa. The patient did have about 1.5 to 2 cm pedunculated polyp at right about 11 cm. This was removed with hot snare polypectomy. was suctioned out. Scope was brought out with the scope. Scope was replaced back to the polypectomy site and continued to be withdrawn. Scope was retroflexed in the rectum. Scope was completely removed and the procedure was terminated. ENDOSCOPIC DIAGNOSES: 1. Some gastritis. 2. Polyp at 11 cm. RECOMMENDATIONS: Followup colonoscopy will depend on pathology, but most likely will need another one in 3 years or sooner if she develops signs and symptoms such as change in bowel habits or blood in the stool. The patient will follow up in clinic to go over EGD. The patient should continue her omeprazole and continue to avoid NSAIDs. ELIDIA / NATALIA /[id number]
== END 2021-04-23 10:44 | disposition home or self-care (01) ==
LOC: MW.SDS 07:52
PROVIDERS: ATTEND Surgery
DX: D12.0 Benign neoplasm of cecum (principal); K29.50 Unspecified chronic gastritis without bleeding; B96.81 Helicobacter pylori [H. pylori] as the cause of diseases classified elsewhere; J45.909 Unspecified asthma, uncomplicated; F17.210 Nicotine dependence, cigarettes, uncomplicated; E66.01 Morbid (severe) obesity due to excess calories; Z68.43 Body mass index [BMI] 50.0-59.9, adult
CPT/HCPCS: 43239; 45385; 81025; 88305; 88342; J2704; J3010; J7120; 00813

== ENCOUNTER 2021-12-02 20:40 | Emergency (ER) | payer MEDICAID ==
[2021-12-02] MEDS ORDERED: methylPREDNISolone Sodium Succinate 125 MG/2 ML SDV IM ONE (20:59)
[2021-12-02] MEDS ORDERED: Albuterol/Ipratropium 3.0-0.5 MG/3 ML Neb Soln NEB ONE (20:59)
[2021-12-02] MEDS ORDERED: Amoxicillin/Clavulanate K 875-125 MG Tab PO ONE (21:29)
[2021-12-02 22:07] VITALS: BP 102/67; PULSE 97
== END 2021-12-02 22:03 | disposition home or self-care (01) ==
LOC: MW.ED 20:40
DX: J45.901 Unspecified asthma with (acute) exacerbation (principal); H66.92 Otitis media, unspecified, left ear; E66.9 Obesity, unspecified; Z68.30 Body mass index [BMI] 30.0-30.9, adult
CPT/HCPCS: 71045; 96372; 99285; A9270; J2930; J7620-GY

== ENCOUNTER 2022-01-10 01:45 | Emergency (ER) | payer MEDICAID ==
[2022-01-10 03:22] LABS: BLOOD UREA NITROGEN,BUN 11 mg/dL (7.0-18.0); CARBON DIOXIDE,CO2 26.4 mmol/L (21.0-32.0); CHLORIDE,CL 102 mmol/L (98-107); GLUCOSE RANDOM 125 mg/dL (74-106); POTASSIUM,K 3.7 mmol/L (3.5-5.1); SODIUM,NA 138 mmol/L (136-145)
[2022-01-10 03:54] VITALS: BP 137/71; PULSE 88
== END 2022-01-10 03:54 | disposition home or self-care (01) ==
LOC: MW.ED 01:45
DX: K92.1 Melena (principal); E66.9 Obesity, unspecified; Z68.42 Body mass index [BMI] 45.0-49.9, adult; Z72.0 Tobacco use
CPT/HCPCS: 36415; 80053; 85025; 85610; 85730; 99283; 99284

== ENCOUNTER 2022-08-11 02:57 | Emergency (ER) | payer MEDICAID ==
[2022-08-11 03:39] VITALS: BP 110/70; PULSE 96
== END 2022-08-11 03:37 | disposition home or self-care (01) ==
LOC: MW.ED 02:57
DX: L05.01 Pilonidal cyst with abscess (principal); J45.909 Unspecified asthma, uncomplicated; E66.9 Obesity, unspecified; Z68.43 Body mass index [BMI] 50.0-59.9, adult; Z79.899 Other long term (current) drug therapy
CPT/HCPCS: 10080; 99282-25

== ENCOUNTER 2023-06-14 20:43 | Emergency (ER) | payer SELFPAY ==
[2023-06-14] MEDS ORDERED: Meclizine 25 MG Tab PO ONE (21:17)
[2023-06-14 22:46] VITALS: BP 140/95; PULSE 96
== END 2023-06-14 22:45 | disposition home or self-care (01) ==
LOC: MW.ED 20:43
DX: M25.572 Pain in left ankle and joints of left foot (principal); R42 Dizziness and giddiness; J45.909 Unspecified asthma, uncomplicated; E66.9 Obesity, unspecified; Z68.43 Body mass index [BMI] 50.0-59.9, adult; Z72.0 Tobacco use; Z98.890 Other specified postprocedural states
CPT/HCPCS: 73610; 99283; A9270

== ENCOUNTER 2023-07-04 19:25 | Emergency (ER) | payer SELFPAY ==
[2023-07-04 20:54] LABS: BASOPHILS ABSOLUTE AUTO 0.02 K/uL (0.00-0.20); BASOPHILS PERCENT AUTO 0.2 % (0.0-1.0); EOSINOPHILS ABSOLUTE AUTO 0.15 K/uL (0.00-0.45); EOSINOPHILS PERCENT AUTO 1.6 % (0.0-6.0); HEMATOCRIT 46.5 % (37.0-47.0); HEMOGLOBIN 14.9 g/dL (12.0-16.0); IMMATURE GRAN ABSOLUTE AUTO 0.03 K/uL (0.00-0.05); IMMATURE GRAN PERCENT AUTO 0.3 % (0.0-0.4); LYMPHOCYTES ABSOLUTE AUTO 3.25 K/uL (1.00-4.80); LYMPHOCYTES PERCENT AUTO 35.2 % (24.0-44.0); MEAN CORPUSCULAR HEMOGLOBIN 26.4 pg (28.0-32.0); MEAN CORPUSCULAR VOLUME 82.3 fL (83.0-99.0); MEAN PLATELET VOLUME 9.9 fL (9.4-12.3); MONOCYTES PERCENT AUTO 6.5 % (0.0-8.0); NEUTROPHILS ABSOLUTE AUTO 5.17 K/uL (1.80-7.70); NEUTROPHILS PERCENT AUTO 56.2 % (41.0-71.0); PLATELET COUNT,PLT 338 K/uL (150-400); RED BLOOD CELL COUNT 5.65 M/uL (4.10-5.30); WHITE BLOOD CELL COUNT,WBC 9.22 K/uL (3.9-11.3)
[2023-07-04 21:18] VITALS: BP 152/76; PULSE 95
[2023-07-04 21:19] LABS: A/G RATIO 0.8 (0.9-1.6); ALANINE AMINOTRANSFERASE,ALT 31 IU/L (14-63); ALBUMIN 3.8 g/dL (3.4-5.0); ALKALINE PHOSPHATASE 88 U/L (46-116); ASPARTATE AMNIOTRANSFERASE,AST 18 IU/L (15-37); BILIRUBIN TOTAL 0.2 mg/dL (0.2-1.0); BLOOD UREA NITROGEN,BUN 5 mg/dL (7.0-18.0); CARBON DIOXIDE,CO2 24.8 mmol/L (21.0-32.0); CHLORIDE,CL 103 mmol/L (98-107); CREATININE 0.8 mg/dL (0.6-1.0); GLUCOSE RANDOM 99 mg/dL (74-106); POTASSIUM,K 3.9 mmol/L (3.5-5.1); PROTEIN TOTAL,TP 8.3 g/dL (6.4-8.2); SODIUM,NA 139 mmol/L (136-145)
[2023-07-04 21:20] LABS: ESTIMATED GFR 102 mL/min (>60)
[2023-07-04] MEDS ORDERED: Cephalexin 500 MG Cap PO ONE (21:27)
[2023-07-04] MEDS ORDERED: traMADol 50 MG Tab PO ONE (21:27)
== END 2023-07-04 21:46 | disposition home or self-care (01) ==
LOC: MW.ED 19:25
DX: N63.0 Unspecified lump in unspecified breast (principal); J45.909 Unspecified asthma, uncomplicated; E66.9 Obesity, unspecified; Z79.899 Other long term (current) drug therapy
CPT/HCPCS: 36415; 80053; 85025; 99283; A9270

== ENCOUNTER 2023-09-16 12:42 | Emergency (ER) | payer SELFPAY ==
[2023-09-16 13:18] VITALS: BP 137/74; PULSE 95
[2023-09-16 13:34] LABS: APPEARANCE,URINE CLEAR; BILIRUBIN,URINE NEGATIVE (NEGATIVE); COLOR,URINE YELLOW; GLUCOSE,URINE NEGATIVE (NEGATIVE); KETONES,URINE NEGATIVE (NEGATIVE); LEUKOCYTE ESTERASE,URINE NEGATIVE (NEGATIVE); NITRITE,URINE NEGATIVE (NEGATIVE); OCCULT BLOOD,URINE NEGATIVE (NEGATIVE); PH,URINE 6.5 (5.0-8.0); PROTEIN,URINE NEGATIVE (NEGATIVE); UROBILINOGEN,URINE 0.2 EU/dL (<2.0)
[2023-09-16] MEDS: Sodium Chloride 0.9% 1,000 ML IV STA (14:14)
[2023-09-16] MEDS: Sodium Chloride 0.9% 2.5 ML Syringe FLUSH PRN (14:14)
[2023-09-16] MEDS: Ketorolac 30 MG/ML SDV IVPUSH STA (14:14)
[2023-09-16] MEDS: Sodium Chloride 0.9% 10 ML Syringe FLUSH PRN (14:14)
[2023-09-16 14:23] LABS: BASOPHILS ABSOLUTE AUTO 0.04 K/uL (0.00-0.20); BASOPHILS PERCENT AUTO 0.4 % (0.0-1.0); EOSINOPHILS ABSOLUTE AUTO 0.31 K/uL (0.00-0.45); EOSINOPHILS PERCENT AUTO 2.9 % (0.0-6.0); HEMATOCRIT 44.1 % (37.0-47.0); HEMOGLOBIN 14.3 g/dL (12.0-16.0); IMMATURE GRAN ABSOLUTE AUTO 0.04 K/uL (0.00-0.05); IMMATURE GRAN PERCENT AUTO 0.4 % (0.0-0.4); LYMPHOCYTES ABSOLUTE AUTO 2.38 K/uL (1.00-4.80); LYMPHOCYTES PERCENT AUTO 21.9 % (24.0-44.0); MEAN CORPUSCULAR HEMOGLOBIN 26.9 pg (28.0-32.0); MEAN CORPUSCULAR HGB CONC 32.4 g/dL (32.0-36.0); MEAN CORPUSCULAR VOLUME 82.9 fL (83.0-99.0); MEAN PLATELET VOLUME 10.1 fL (9.4-12.3); MONOCYTES ABSOLUTE AUTO 0.75 K/uL (0.00-0.80); MONOCYTES PERCENT AUTO 6.9 % (0.0-8.0); NEUTROPHILS ABSOLUTE AUTO 7.33 K/uL (1.80-7.70); NEUTROPHILS PERCENT AUTO 67.5 % (41.0-71.0); PLATELET COUNT,PLT 309 K/uL (150-400); RED BLOOD CELL COUNT 5.32 M/uL (4.10-5.30); WHITE BLOOD CELL COUNT,WBC 10.85 K/uL (3.9-11.3)
[2023-09-16 14:51] LABS: A/G RATIO 0.8 (0.9-1.6); ALBUMIN 3.3 g/dL (3.4-5.0); BILIRUBIN TOTAL 0.3 mg/dL (0.2-1.0); CALCIUM 8.7 mg/dL (8.5-10.1); CARBON DIOXIDE,CO2 26.5 mmol/L (21.0-32.0); CREATININE 0.8 mg/dL (0.6-1.0); EST CRCL DRUG DOSING (CG) 92.53 mL/min; PROTEIN TOTAL,TP 7.4 g/dL (6.4-8.2)
[2023-09-16] MEDS: Iopamidol 755 MG/ML 500 ML Multipack Bottle IVPUSH STA (15:35)
== END 2023-09-16 17:12 | disposition home or self-care (01) ==
LOC: MW.ED 12:42
DX: R10.30 Lower abdominal pain, unspecified (principal); E66.9 Obesity, unspecified
CPT/HCPCS: 36415; 74177; 80053; 81003; 83690; 84703; 85025; 96361; 96374; 99284; J1885; J3490; J7030; Q9967

== ENCOUNTER 2024-04-14 23:43 | Emergency (ER) | payer MEDICAID ==
[2024-04-15] MEDS: Acetaminophen 500 MG Tab PO ONE (00:07)
[2024-04-15] MEDS: Ondansetron 4 MG Tab.DIS PO PRN (00:07)
[2024-04-15] MEDS: Ketorolac 30 MG/ML SDV IM ONE (00:17)
[2024-04-15 01:03] VITALS: BP 113/79; PULSE 100
== END 2024-04-15 01:02 | disposition home or self-care (01) ==
LOC: MW.ED 23:43
DX: S06.0X0A Concussion without loss of consciousness, initial encounter (principal); S00.93XA Contusion of unspecified part of head, initial encounter; S00.83XA Contusion of other part of head, initial encounter; S39.91XA Unspecified injury of abdomen, initial encounter; R68.84 Jaw pain; Z79.899 Other long term (current) drug therapy; Y04.8XXA Assault by other bodily force, initial encounter
CPT/HCPCS: 70450; 70486; 81025; 96372; 99284; A9270; J1885

== ENCOUNTER 2024-10-13 20:52 | Emergency (ER) | payer MEDICAID ==
[2024-10-13 21:56] VITALS: BP 150/84; PULSE 120
== END 2024-10-14 00:56 | disposition home or self-care (01) ==
LOC: MW.ED 20:52
DX: J04.0 Acute laryngitis (principal); J06.9 Acute upper respiratory infection, unspecified; B97.89 Other viral agents as the cause of diseases classified elsewhere; J45.909 Unspecified asthma, uncomplicated; E66.9 Obesity, unspecified; Z68.43 Body mass index [BMI] 50.0-59.9, adult; Z79.51 Long term (current) use of inhaled steroids; Z79.899 Other long term (current) drug therapy; Z75.8 Other problems related to medical facilities and other health care
CPT/HCPCS: 87428-QW; 87651-QW; 99284

== ENCOUNTER 2024-12-03 17:18 | Emergency (ER) | payer MEDICAID ==
[2024-12-03 17:24] VITALS: BP 140/76; PULSE 111
[2024-12-03] MEDS: Meclizine 25 MG Tab PO ONE (17:36)
== END 2024-12-03 17:38 | disposition home or self-care (01) ==
LOC: MW.ED 17:18
DX: Z02.89 Encounter for other administrative examinations (principal); Z76.0 Encounter for issue of repeat prescription; J45.909 Unspecified asthma, uncomplicated; E66.9 Obesity, unspecified; F17.210 Nicotine dependence, cigarettes, uncomplicated; Z79.899 Other long term (current) drug therapy
CPT/HCPCS: 99283; A9270; 99282

== ENCOUNTER 2024-12-08 12:31 | Emergency (ER) | payer MEDICAID ==
[2024-12-08 14:38] LABS: BASOPHILS ABSOLUTE AUTO 0.06 K/uL (0.00-0.20); BASOPHILS PERCENT AUTO 0.5 % (0.0-1.0); EOSINOPHILS ABSOLUTE AUTO 0.21 K/uL (0.00-0.45); EOSINOPHILS PERCENT AUTO 1.7 % (0.0-6.0); HEMATOCRIT 43.5 % (37.0-47.0); HEMOGLOBIN 14.3 g/dL (12.0-16.0); IMMATURE GRAN ABSOLUTE AUTO 0.06 K/uL (0.00-0.05); IMMATURE GRAN PERCENT AUTO 0.5 % (0.0-0.4); LYMPHOCYTES ABSOLUTE AUTO 2.97 K/uL (1.00-4.80); LYMPHOCYTES PERCENT AUTO 24.5 % (24.0-44.0); MEAN CORPUSCULAR HEMOGLOBIN 26.7 pg (28.0-32.0); MEAN CORPUSCULAR HGB CONC 32.9 g/dL (32.0-36.0); MEAN CORPUSCULAR VOLUME 81.2 fL (83.0-99.0); MEAN PLATELET VOLUME 9.7 fL (9.4-12.3); MONOCYTES ABSOLUTE AUTO 0.69 K/uL (0.00-0.80); MONOCYTES PERCENT AUTO 5.7 % (0.0-8.0); NEUTROPHILS ABSOLUTE AUTO 8.15 K/uL (1.80-7.70); NEUTROPHILS PERCENT AUTO 67.1 % (41.0-71.0); PLATELET COUNT,PLT 321 K/uL (150-400); RED BLOOD CELL COUNT 5.36 M/uL (4.10-5.30); WHITE BLOOD CELL COUNT,WBC 12.14 K/uL (3.9-11.3)
[2024-12-08 15:03] LABS: A/G RATIO 1.1 (0.9-1.6); BILIRUBIN TOTAL 0.4 mg/dL (0.2-1.0); C-REACTIVE PROTEIN 1.19 mg/dL (<0.3); CALCIUM 9.1 mg/dL (8.5-10.1); CARBON DIOXIDE,CO2 25.2 mmol/L (21.0-32.0); CREATININE 0.7 mg/dL (0.6-1.0); EST CRCL DRUG DOSING (CG) 103.82 mL/min; POTASSIUM,K 4.2 mmol/L (3.5-5.1); PROTEIN TOTAL,TP 7.6 g/dL (6.4-8.2)
[2024-12-08 15:22] VITALS: BP 130/87; PULSE 87
== END 2024-12-08 15:28 | disposition home or self-care (01) ==
LOC: MW.ED 12:31
DX: L03.115 Cellulitis of right lower limb (principal); J45.909 Unspecified asthma, uncomplicated; F17.210 Nicotine dependence, cigarettes, uncomplicated; Z79.899 Other long term (current) drug therapy
CPT/HCPCS: 36415; 73630-26-RT; 73630-RT; 80053; 84703; 85025; 85652; 86140; 99283

== ENCOUNTER 2025-05-30 15:40 | Emergency (ER) | payer MEDICAID, OTHER ==
[2025-05-30 16:10] VITALS: BP 125/83; PULSE 103
[2025-05-30] MEDS: Amoxicillin/Clavulanate K 875-125 MG Tab PO ONE (16:20)
== END 2025-05-30 16:37 | disposition home or self-care (01) ==
LOC: MW.ED 15:40
DX: R42 Dizziness and giddiness (principal); H66.91 Otitis media, unspecified, right ear; Z79.899 Other long term (current) drug therapy; J45.909 Unspecified asthma, uncomplicated; Z86.16 Personal history of COVID-19; E66.9 Obesity, unspecified; Z02.89 Encounter for other administrative examinations; Z68.43 Body mass index [BMI] 50.0-59.9, adult
CPT/HCPCS: 99283; A9270